=== PATIENT | female | born 1955 | race Caucasian/White ===

== ENCOUNTER → 2024-02-21 07:57 | Outpatient (REF) | payer MEDICARE, SELFPAY | LOC: WDC 07:57 | PROVIDERS: ATTENDING PHYSICIAN Obstetrics & Gynecology; FAMILY PHYSICIAN Internal Medicine | DX: Z12.31 Encounter for screening mammogram for malignant neoplasm of breast (principal) | CPT/HCPCS: 77063; 77067 ==

== ENCOUNTER → 2024-03-31 09:41 | Outpatient (REF) | payer MEDICARE, SELFPAY | LOC: RAD 09:41 | PROVIDERS: ATTENDING PHYSICIAN Internal Medicine | DX: Z78.0 Asymptomatic menopausal state (principal) | CPT/HCPCS: 77080 ==

== ENCOUNTER → 2025-02-21 06:35 | Outpatient (REF) | payer MEDICARE, SELFPAY | LOC: WDC 06:35 | PROVIDERS: ATTENDING PHYSICIAN Internal Medicine | DX: Z12.31 Encounter for screening mammogram for malignant neoplasm of breast (principal) | CPT/HCPCS: 77063; 77067 ==